=== PATIENT | male | born 1970 | race Caucasian/White ===

== ENCOUNTER 2019-04-06 11:59 | Inpatient (IN) ==
[2019-04-06] MEDS ORDERED: ceFAZolin 3,000 MG in Water for inj. (sterile) 30 ML IVP ONE (12:32)
[2019-04-06] MEDS ORDERED: CeFAZolin Syr 3,000MG/30 ML 3,000 MG/30 ML SYRINGE IVPB ONE (12:32)
[2019-04-06] MEDS ORDERED: Ringers Solution, Lactated 1,000 ML IVC SCH ×2 (12:45→18:16)
[2019-04-06] MEDS ORDERED: *HR* Labetalol 20 MG/4 ML SYRINGE IVP PRN (12:54)
[2019-04-06] MEDS ORDERED: *HR* HYDROmorphone 2 MG/ML SYRINGE IVP PRN (12:54)
[2019-04-06] MEDS ORDERED: *HR* Promethazine 25 MG/ML VIAL IVP PRN (12:54)
[2019-04-06] MEDS ORDERED: Ondansetron 4 MG/2 ML VIAL IVP ONE (12:54)
[2019-04-06] MEDS ORDERED: *HR* OxyCODONE Immed Rel 5 MG TABLET PO PRN ×2 (12:54→18:16)
[2019-04-06] MEDS ORDERED: Gabapentin 300 MG CAPSULE PO ONE (12:54)
[2019-04-06] MEDS ORDERED: Ropivacaine/PF 0.5% 30 ML VIAL ONE (13:52)
[2019-04-06] MEDS ORDERED: ROPIVACAINE/PF/NS 0.25% 1 EACH SYRINGE INTRAART ONE (13:52)
[2019-04-06] MEDS ORDERED: *HR* FentaNYL (PF) 100 MCG/2 ML VIAL ONE ×2 (14:05→16:04)
[2019-04-06] MEDS ORDERED: *HR* Midazolam HCl 2 MG/2 ML VIAL ONE ×2 (14:05→16:04)
[2019-04-06] MEDS ORDERED: Ethanol\\Acetic Acid\\Na Ace\\Ben 1,000 ML IRRIG.SOLN IR ONE (15:22)
[2019-04-06] MEDS ORDERED: *HR* Propofol 200 MG/20 ML VIAL IVP ONE (16:04)
[2019-04-06] MEDS ORDERED: *HR* Rocuronium Bromide 50 MG/5 ML VIAL ONE (16:04)
[2019-04-06] MEDS ORDERED: Lidocaine -MPF 2% 2 ML VIAL ONE (16:04)
[2019-04-06] MEDS ORDERED: Ondansetron 4 MG/2 ML VIAL ONE (16:04)
[2019-04-06] MEDS ORDERED: Lidocaine HCL 4 ML Topical Solution (Laryng-O-Jet Kit Sterile Pak) TP ONE (16:04)
[2019-04-06] MEDS ORDERED: Dexamethasone 4 MG/ML VIAL ONE (16:04)
[2019-04-06] MEDS ORDERED: *HR* Succinylcholine 200 MG/10 ML VIAL IVP ONE (16:04)
[2019-04-06] MEDS ORDERED: *HR* PHENYLEPHRINE 1,000 MCG/10 ML SYRINGE IVP ONE (16:20)
[2019-04-06] MEDS ORDERED: EPHEDrine 50 MG/ML VIAL ONE (16:33)
[2019-04-06] MEDS ORDERED: *HR* Enoxaparin 30 MG/0.3 ML SYRINGE SQ SCH ×2 (18:00→19:30)
[2019-04-06] MEDS ORDERED: Ondansetron 4 MG/2 ML VIAL IVP PRN (18:16)
[2019-04-06] MEDS ORDERED: *HR* OxyCODONE/APAP 5/325 TABLET PO PRN (18:16)
[2019-04-06] MEDS ORDERED: Ibuprofen 200 MG TABLET PO PRN (18:16)
[2019-04-06] MEDS ORDERED: Naloxone 0.4 MG/ML INJ IVP PRN (18:16)
[2019-04-06] MEDS ORDERED: Sennosides 8.6 MG TABLET PO PRN (18:16)
[2019-04-06] MEDS ORDERED: Temazepam 15 MG CAPSULE PO PRN (18:16)
[2019-04-06] MEDS ORDERED: MOM Conc 10 ML UD.LIQ PO PRN (18:16)
[2019-04-06 18:46] LABS: Hematocrit 39.4 % (37.5-50.1); Hemoglobin 12.8 g/dL (12.9-16.9)
[2019-04-06] MEDS ORDERED: ceFAZolin sodium 3,000 MG in 0.9 % Sodium Chloride 100 ML IVPB SCH (19:30)
[2019-04-06 19:34] VITALS: BP 113/72
[2019-04-07] MEDS ORDERED: Multivit/Ca/Min/Fe/FA 1 TAB TABLET PO SCH (09:00)
== END 2019-04-06 21:46 | disposition home or self-care (01) | DRG 483 ==
LOC: SAMDAY 11:59 → 3NENU 19:07
PROVIDERS: ADMIT Orthopaedic Surgery; ATTEND Orthopaedic Surgery